=== PATIENT | male | born 1980 ===

== ENCOUNTER 2016-11-22 23:14 | Observation (INO) | payer SELFPAY ==
[2016-11-22 23:39] VITALS: RESP 18; O2SAT 98
[2016-11-23 01:17] LABS: BASO # 0.1 K/uL (0.0-0.2); EOS # 0.1 K/uL (0.0-0.7); HEMATOCRIT 43.1 % (35.0-51.0); LYMPH # 1.6 K/uL (1.0-4.3); LYMPH % 28.3 % (20.0-40.0); MEAN CELL VOLUME 91.2 fl (80.0-94.0); MEAN PLATELET VOLUME 8.5 fl (7.2-11.7); MONO # 0.5 K/uL (0.0-0.8); MONO % 8.6 % (0.0-10.0); NEUT # 3.4 K/uL (1.8-7.0); NEUT % 60.1 % (50.0-75.0); NRBC % 0.1 % (0.0-0.0); RED CELL DISTRIBUTION WIDTH 13.3 % (11.5-14.5); WHITE BLOOD COUNT 5.6 K/uL (4.8-10.8)
--- NOTE | 2016-11-23 01:23 | ED PDOC ---
HPI: Psych/Substance Abuse Time Seen by Provider: 11/22/16 23:36 Chief Complaint (Nursing): Alcohol Ingestion Chief Complaint (Provider): substance abuse Additional History Per: EMS Additional Complaint(s): 36 y/o male brought in by EMS for suspected acute alcohol intoxication. Patient awake, pacing about exam room being very inappropriate towards female staff and aggressive towards male staff upon arrival. HPI limited due to current state. Past Medical History Reviewed: Historical Data, Nursing Documentation, Vital Signs Vital Signs: Last Vital Signs Temp 99.0 F 11/22/16 23:37 Pulse 144 H 11/22/16 23:37 Resp 18 11/22/16 23:37 BP 148/74 11/22/16 23:37 Pulse Ox 98 11/22/16 23:37 - Family History Family History: States: Unknown Family Hx - Allergies Allergies/Adverse Reactions: Allergies Allergy/AdvReac Type Severity Reaction Status Date / Time No Known Allergies Allergy Verified 11/22/16 23:39 Review of Systems Review Of Systems: ROS cannot be obtained secondary to pt's inabilty to answer questions. Physical Exam - Reviewed Nursing Documentation Reviewed: Yes Vital Signs Reviewed: Yes - Physical Exam Appears: Positive for: Well, Non-toxic, Uncomfortable (agitated, aggressive) Cardiovascular/Chest: Positive for: Regular Rate, Rhythm Respiratory: Positive for: Normal Breath Sounds Extremity: Positive for: Normal ROM Neurologic/Psych: Positive for: Alert, Oriented - Laboratory Results Result Diagrams: 11/23/16 01:14 11/23/16 01:14 - ECG O2 Sat by Pulse Oximetry: 98 - Progress ED Course And Treament: Patient uncooperative with staff; aggressive. Unwilling to comply with alternative options offered; Patient placed in 4 point restraints and medicated for acute agitation and patient/staff safety ED OBSERVATION Discharge: Yes Date of observation admission: 11/23/16 Time of observation admission: 01:48 - Observation admission statement Patient is being placed in observation because:: acute alcohol intoxication - Goals of Observation Goals of observation are:: observe for clinical sobriety - Progress Note Progress Note: 11/23/16 01:49 patient sleeping 11/23/16 4:00 Patient sleeping; arousable to verbal stimuli 6:00 Patient awake, alert, oriented x3. Ambulating steady gait. Stable for discharge. Disposition - Clinical Impression Clinical Impression: Alcohol intoxication Clinical Impression: (Ruled Out): Alcohol dependence with withdrawal delirium - Patient ED Disposition Is Patient to be Admitted: No - Disposition Disposition: Routine/Home Disposition Time: 06:10 Condition: STABLE
[2016-11-23 01:25] LABS: ALB/GLOB RATIO 1.2 (1.0-2.1); ALCOHOL SERUM 236 mg/dl (0-10); ALKALINE PHOSPHATASE 91 U/L (38-126); ALT/SGPT 57 U/L (21-72); AST/SGOT 31 U/L (17-59); BILIRUBIN,TOTAL 0.2 mg/dl (0.2-1.3); BLOOD UREA NITROGEN 14 mg/dl (9-20); CALCIUM 8.9 mg/dL (8.4-10.2); CARBON DIOXIDE 22 mmol/L (22-30); CHLORIDE 103 mmol/L (98-107); GFR AFRICAN-AMERICAN > 60; GLUCOSE,RANDOM 122 mg/dL (75-110); POTASSIUM 3.9 MMOL/L (3.6-5.0); SODIUM 140 mmol/l (132-148); TOTAL PROTEIN 7.8 G/DL (6.3-8.2)
[2016-11-23 06:16] VITALS: BP 116/85; PULSE 93; TEMP 97.6
== END 2016-11-23 06:10 | disposition home or self-care (01) ==
LOC: H.ER 23:14 → H.EROBSV 11-23 01:48
PROVIDERS: ADMIT Emergency Medicine; ATTEND Emergency Medicine
DX: F10.129 Alcohol abuse with intoxication, unspecified (principal); Y90.7 Blood alcohol level of 200-239 mg/100 ml; Z78.1 Physical restraint status
CPT/HCPCS: 80053; 85025; 96372; 99283; G0378; G0480; J1630; J2060

== ENCOUNTER 2018-06-16 21:47 | Emergency (ER) | payer SELFPAY ==
[2018-06-16 21:51] VITALS: TEMP 98.3
--- NOTE | 2018-06-16 22:32 | ED PDOC ---
HPI: Back Time Seen by Provider: 06/16/18 22:10 Chief Complaint (Nursing): Back Pain Chief Complaint (Provider): Back Pain History Per: Patient History/Exam Limitations: no limitations Onset/Duration Of Symptoms: Mins (just prior to arrival) Current Symptoms Are (Timing): Still Present Previous Symptoms: Chronic Pain (sciatic pain) Associated Symptoms: None Additional Complaint(s): 38 year old male with a past medical history of sciatica is brought into the ED in handcuffs by police due to reported back pain and right leg pain. Police is no longer in the room when patient s evaluated by ED MD. Patient states he was arrested for "a flurry of different things". Patient continues to say he was "injustly thrown into the police car, causing problems with his normal sciatic pain. Patient reports having prescription medication for sciatic pain, but refuses to taken them because he "can manage his pain on his own". Patient denies having any other pain or problems, except "the shit going on at home". Patient denies currently taking any daily medications and having any medical problems. Patient denies drinking today and denies using any drugs. Patient he "feels safe at home an can deal with it". PMD: Not provided. Past Medical History Reviewed: Historical Data, Nursing Documentation, Vital Signs Vital Signs: Last Vital Signs Temp 98.3 F 06/16/18 21:49 Pulse Resp BP Pulse Ox - Medical History PMH: Back Problems (sciatica) - Surgical History Surgical History: No Surg Hx - Family History Family History: States: Unknown Family Hx - Social History Alcohol: None Drugs: Denies - Allergies Allergies/Adverse Reactions: Allergies Allergy/AdvReac Type Severity Reaction Status Date / Time No Known Allergies Allergy Verified 11/22/16 23:39 Review of Systems ROS Statement: Except As Marked, All Systems Reviewed And Found Negative Musculoskeletal: Positive for: Back Pain (radiates down to right leg) Physical Exam - Reviewed Nursing Documentation Reviewed: Yes Vital Signs Reviewed: Yes - Physical Exam Appears: Positive for: Well, Non-toxic, No Acute Distress Head Exam: Positive for: ATRAUMATIC, NORMOCEPHALIC Cardiovascular/Chest: Positive for: Regular Rate, Rhythm Respiratory: Positive for: Normal Breath Sounds (clear to auscultation) Gastrointestinal/Abdominal: Positive for: Normal Exam, Soft. Negative for: Tenderness Extremity: Negative for: Other (no apparent pain on (right) straight leg raise. patient is ambulating without deficit.) Neurologic/Psych: Positive for: Alert, Oriented (3x) Medical Decision Making Medical Decision Makin:10 Initial impression: 38 year old male is brought into the ED by police department with complaints of back pain. Patient is refusing medications and treatment for back pain in the ED. Patient's physical exam is unremarkable, and there is no indication for further medical evaluation at this time. Scribe Attestation: Documented byCandelaria Arizmendi, acting as a scribe for Candelaria Gonzalez MD. Provider Scribe Attestation: All medical record entries made by the Scribe were at my direction and personally dictated by me. I have reviewed the chart and agree that the record accurately reflects my personal performance of the history, physical exam, medical decision making, and the department course for this patient. I have also personally directed, reviewed, and agree with the discharge instructions and disposition. Disposition - Clinical Impression Clinical Impression: Sciatic leg pain - Disposition Disposition: Routine/Home Disposition Time: 21:35 Condition: IMPROVED Additional Instructions: Follow up with primary medical doctor. Take Tylenol or Ibuprofen for pain. Instructions: Sciatica (DC) Forms: [employer] ([place] Citizen) Print Language: TRISTANIAN
== END 2018-06-16 22:52 | disposition home or self-care (01) ==
LOC: H.ER 21:47
DX: M54.9 Dorsalgia, unspecified (principal); M54.31 Sciatica, right side

== ENCOUNTER 2018-11-16 18:05 | Emergency (ER) | payer SELFPAY ==
[2018-11-16 18:15] VITALS: RESP 16; TEMP 97.9
--- NOTE | 2018-11-16 18:46 | ED PDOC ---
HPI: Psych/Substance Abuse Time Seen by Provider: 11/16/18 18:26 Chief Complaint (Nursing): Alcohol Ingestion Chief Complaint (Provider): Alcohol Ingestion ED Caveat: Intoxicated History Per: Patient History/Exam Limitations: intoxication Current Symptoms Are (Timing): Still Present Modifying Factor(s): Alcohol Additional Complaint(s): 38 year old male is brought to the emergency department via EMS for an evaluation of alcohol intoxication. Patient presents with facial trauma and reports that he fell, however, offers no further history. He states, "I am drinking because I'm [place]". History is limited secondary to current clinical condition. PCP: none provided Past Medical History Reviewed: Nursing Documentation, Vital Signs Vital Signs: Last Vital Signs Temp 97.9 F 11/16/18 18:10 Pulse 102 H 11/16/18 18:10 Resp 16 11/16/18 18:10 BP 136/81 11/16/18 18:10 Pulse Ox 95 11/16/18 18:10 - Medical History PMH: Back Problems (sciatica) - Family History Family History: States: Unknown Family Hx - Allergies Allergies/Adverse Reactions: Allergies Allergy/AdvReac Type Severity Reaction Status Date / Time No Known Allergies Allergy Verified 11/22/16 23:39 Review of Systems Review Of Systems: ROS cannot be obtained secondary to pt's inabilty to answer questions. Physical Exam - Reviewed Nursing Documentation Reviewed: Yes Vital Signs Reviewed: Yes - Physical Exam Appears: Positive for: No Acute Distress Head Exam: Negative for: ATRAUMATIC Skin: Positive for: Normal Color Eye Exam: Positive for: Other (abrasion to right periorbital area) Cardiovascular/Chest: Positive for: Regular Rate, Rhythm Respiratory: Positive for: Normal Breath Sounds. Negative for: Respiratory Distress Extremity: Positive for: Normal ROM (upper/lower). Negative for: Deformity (or ecchymosis/lacerations) Neurological/Psych: Positive for: Awake (somewhat arousable), Symmetric/Intact Strength (5/5), Other (slurred speech with alcohol on breath) - Laboratory Results Result Diagrams: 11/16/18 18:52 11/16/18 18:52 - ECG O2 Sat by Pulse Oximetry: 95 (RA) Pulse Ox Interpretation: Normal Medical Decision Making Medical Decision Making: Time: 1834 Initial Plan: work-up with labs and imaging for alcohol intoxication with likely fall and facial trauma. * CT C-spine * CT head * CT maxillofacial * Labs labs reviewed, etoh elevated otherwise unremarkable patient slept for several hours, 1040p re-eval: awake with stable gait, upset over missing phone and requesting discharge. Disrespectful to staff, but gait stable and clear speech, has obtained clinical sobriety. CT reports reviewed, no ICH, no fracture. Offered bacitracin for facial abrasion but refused. states he is not driving. DC from ED, encourage alcohol in moderation only. Scribe Attestation: Documented by Danielle Garcia, acting as a scribe for Jeff Peña III, DO. Provider Scribe Attestation: All medical record entries made by the Scribe were at my direction and personally dictated by me. I have reviewed the chart and agree that the record accurately reflects my personal performance of the history, physical exam, medical decision making, and the department course for this patient. I have also personally directed, reviewed, and agree with the discharge instructions and disposition. Disposition - Clinical Impression Clinical Impression: Alcohol abuse, Facial abrasion, Head trauma - Patient ED Disposition Is Patient to be Admitted: No Counseled Patient/Family Regarding: Studies Performed, Diagnosis, Need For Followup - Disposition Referrals: Alcoholics Anonymous [Outside] Disposition: Routine/Home Disposition Time: 23:08 Condition: STABLE Instructions: Alcohol Use - When Is Drinking a Problem?, Minor Head Injury (DC), Skin Abrasions (DC)
[2018-11-16 18:55] LABS: BASO # 0.1 K/uL (0.0-0.2); EOS # 0.2 K/uL (0.0-0.7); EOS % 3.1 % (0.0-4.0); HEMOGLOBIN 15.8 g/dL (12.0-18.0); LYMPH # 2.1 K/uL (1.0-4.3); LYMPH % 30.6 % (20.0-40.0); MEAN CELL VOLUME 93.7 fl (80.0-94.0); MEAN CORPUSCULAR HEMOGLOBIN 32.6 pg (27.0-31.0); MEAN CORPUSCULAR HGB CONC 34.8 g/dL (33.0-37.0); MEAN PLATELET VOLUME 8.7 fl (7.2-11.7); MONO # 0.6 K/uL (0.0-0.8); MONO % 8.3 % (0.0-10.0); NRBC % 0.1 % (0.0-0.0); RBC 4.84 Mil/uL (4.40-5.90); RED CELL DISTRIBUTION WIDTH 13.6 % (11.5-14.5); WHITE BLOOD COUNT 6.9 K/uL (4.8-10.8)
[2018-11-16 19:04] LABS: BLOOD UREA NITROGEN 12 mg/dl (9-20); CALCIUM 9.1 mg/dL (8.4-10.2); GFR NON-AFRICAN AMERICAN > 60
[2018-11-16 22:16] VITALS: BP 132/77; PULSE 90
[2018-11-16 23:09] VITALS: O2SAT 95
--- NOTE | 2018-11-17 09:29 | CT ---
Date of service: 11/16/2018 PROCEDURE: CT HEAD WITHOUT CONTRAST. HISTORY: r/o ICH COMPARISON: None available. TECHNIQUE: Axial computed tomography images were obtained through the head/brain without intravenous contrast. Radiation dose: Total exam DLP = 1193.33 mGy-cm. This CT exam was performed using one or more of the following dose reduction techniques: Automated exposure control, adjustment of the mA and/or kV according to patient size, and/or use of iterative reconstruction technique. FINDINGS: HEMORRHAGE: No intracranial hemorrhage. BRAIN: No mass effect or edema. No atrophy or chronic microvascular ischemic changes. VENTRICLES: Unremarkable. No hydrocephalus. CALVARIUM: Unremarkable. PARANASAL SINUSES: Unremarkable as visualized. No significant inflammatory changes. MASTOID AIR CELLS: Unremarkable as visualized. No inflammatory changes. OTHER FINDINGS: No appreciable scalp hematoma is noted. Sella is normal in outline and no sellar masses are seen. No tonsillar ectopia is identified. No cortical effacement is seen. Visualized cavernous sinus regions are unremarkable. Retro-orbital regions are within normal limits. No significant decreased density is seen in the white matter tracts. IMPRESSION: Normal CT of the Head.
--- NOTE | 2018-11-17 09:35 | CT ---
Date of service: 11/16/2018 PROCEDURE: CT MAXILLOFACIAL BONES WITHOUT CONTRAST HISTORY: facial trauma COMPARISON: None available. TECHNIQUE: Contiguous axial CT images of the maxillofacial bones were obtained. Coronal and sagittal reformats were generated. Radiation dose: Total exam DLP = 931.8 mGy-cm. This CT exam was performed using one or more of the following dose reduction techniques: Automated exposure control, adjustment of the mA and/or kV according to patient size, and/or use of iterative reconstruction technique. FINDINGS: NASAL BONES: No appreciable nasal bone fracture is noted. No nasal cavity masses are noted. Nasal septum is mildly deviated to the left ORBITS: The bony orbits appear grossly intact. No orbital floor irregularity is seen. Lamina papyracea appear intact. No retro-orbital hematoma is seen. PARANASAL SINUSES/ MASTOIDS: Minor mucosal changes are seen. No fluid levels are identified. Ambriz of the sinuses appear intact. MAXILLA: Maxilla are intact. Zygoma are intact. MANDIBLE/ TEMPOROMANDIBULAR JOINTS: No temporomandibular joint dislocation or widening is seen. Mandible is intact. Dental disease is appreciated. SKULL BASE: Unremarkable. TEMPORAL BONES: Middle ears and mastoid grossly unremarkable. OTHER FINDINGS: None. IMPRESSION: No facial bone fracture identified. Limited exam due to obliquity of the imaging. This agrees with preliminary report.
--- NOTE | 2018-11-17 09:38 | CT ---
Date of service: 11/16/2018 PROCEDURE: CT Cervical Spine without contrast HISTORY: trauma r/o fx COMPARISON: None available. TECHNIQUE: Axial computed tomography images were obtained of the cervical spine without the use of intravenous contrast. Coronal and sagittal reformatted images were created and reviewed. Radiation dose: Total exam DLP = 446.73 mGy-cm. This CT exam was performed using one or more of the following dose reduction techniques: Automated exposure control, adjustment of the mA and/or kV according to patient size, and/or use of iterative reconstruction technique. FINDINGS: VERTEBRAE: No fracture is seen. No malalignment is noted. There is mild straightening of the normal lordotic curvature which may be related to patient positioning and/or spasm. No prevertebral soft tissue swelling is seen. Dens is intact. There is no abnormal widening of C1-C2. No jumped facets are seen. DISCS/SPINAL CANAL/NEURAL FORAMINA: No central canal narrowing is seen. Mild degenerative disc disease is noted. Minor neural foraminal narrowing is seen at C3-4. Mild disc bulging is noted without appreciable focal disc herniation or abnormal impression upon the cord. Upper thoracic spine is unremarkable. PARASPINAL SOFT TISSUES: Unremarkable. OTHER FINDINGS: None. IMPRESSION: No evidence of fracture or malalignment.
== END 2018-11-16 23:16 | disposition home or self-care (01) ==
LOC: H.ER 18:05
DX: F10.129 Alcohol abuse with intoxication, unspecified (principal); S00.81XA Abrasion of other part of head, initial encounter; W19.XXXA Unspecified fall, initial encounter; Y92.89 Other specified places as the place of occurrence of the external cause
CPT/HCPCS: 70450; 70486; 72125; 80048; 85025; 99283; G0480